=== PATIENT | male | born 1960 | race Caucasian/White ===

== ENCOUNTER 2020-08-31 08:47 | Emergency (ER) | payer SELFPAY ==
[~2020-08-31 08:47] MED LIST: Sodium Chloride 0.9% 1,000 ML BAG ONE
[2020-08-31] MEDS ORDERED: Lidocaine 1% 20 ML MDV ONE (09:16)
[2020-08-31] MEDS ORDERED: Clindamycin/D5W 900 mg/50 ml Premix Bag ONE (09:52)
[2020-08-31] MEDS ORDERED: Morphine 4 MG/ML VIAL ONE (09:52)
[2020-08-31] MEDS ORDERED: metroNIDAZOLE 500 MG/100 ML BAG ONE (09:52)
[2020-08-31] MEDS ORDERED: Ondansetron PF 4 MG/2 ML Vial ONE (09:52)
[2020-08-31 10:06] LABS: #Basophils 0.2 thou/uL (0.0-0.2); #Eosinphils 0.2 thou/uL (0.0-0.7); #Lymphocytes 1.1 thou/uL (1.20-3.40); #Monocytes 1.4 thou/uL (0.11-0.59); #Neutrophils 13.6 thou/uL (1.40-6.50); %Eosinophils 1.2 % (0.0-10.0); %Lymphocytes 6.8 % (21.0-51.0); %Monocytes 8.3 % (0.0-10.0); %Neutrophils 82.7 % (42.0-75.0); Hemoglobin 14.8 g/dL (14.0-18.0); Mean Corpuscular HGB CONC 33.2 g/dL (32.0-36.0); Mean Corpuscular Hemoglobin 28.5 pg (27.0-31.0); Mean Corpuscular Volume 85.9 fL (78.0-98.0); Mean Platelet Volume 8.1 fL (7.4-10.4); Platelet Count 201 thou/uL (130-400); RBC Distribution Width 11.5 % (11.5-14.5); Red Blood Cell (RBC) Count 5.19 mill/uL (4.70-6.10); White Blood Cell (WBC) Count 16.5 thou/uL (4.8-10.8)
[2020-08-31 10:19] LABS: ALT (SGPT) 29 U/L (8-55); AST (SGOT) 16 U/L (5-34); Albumin 4.1 g/dL (3.4-4.8); Alkaline Phosphatase 72 U/L (40-110); Anion Gap 15 mmol/L (10-20); BUN (Urea Nitrogen) 20 mg/dL (8.4-25.7); Bilirubin, Total 1.1 mg/dL (0.2-1.2); Calc. Creatinine Clearance 0 mL/min (70-130); Calcium 9.6 mg/dL (7.8-10.44); Carbon Dioxide 22 mmol/L (23-31); Chloride 103 mmol/L (98-107); Globulin 3.6 g/dL (2.4-3.5); Glucose 190 mg/dL (80-115); Potassium 4.4 mmol/L (3.5-5.1); Protein, Total 7.7 g/dL (5.8-8.1); Sodium 136 mmol/L (136-145)
[2020-08-31] MEDS ORDERED: Iopamidol 370 76% 100 ML VIAL ONE (10:46)
[2020-08-31 10:50] LABS: Bilirubin Negative (Negative); Blood, Urine Negative (Negative); Clarity Clear (Clear); Glucose, Urine (Dipstick) Negative (Negative); Ketone, Urine Negative (Negative); Leukocyte Negative (Negative); Nitrite Negative (Negative); Protein, Urine (Dipstick) 30 mg/dL (Neg-Trace); Specific Gravity, Urine 1.025 (1.005-1.030); pH, Urine 5.5 (5.0-9.0)
[2020-08-31 11:05] LABS: Amphetamine Not Detected (NotDetected); Barbiturates Screen Not Detected (NotDetected); Benzodiazepine Screen Not Detected (NotDetected); Cocaine Metabolite Screen Not Detected (NotDetected); Medtox Control Line Valid? VALID (VALID); Methadone Not Detected (NotDetected); Methamphetamine Not Detected (NotDetected); Opiate Screen Not Detected (NotDetected); Oxycodone Screen Not Detected (NotDetected); Phencyclidine (PCP) Not Detected (NotDetected); THC/Cannabinoid Screen Not Detected (NotDetected); Tricyclic Screen Not Detected (NotDetected)
--- NOTE | 2020-08-31 11:05 | CT ---
CT abdomen and pelvis with IV contrast HISTORY: Abdomen and pelvic pain. Gluteal abscess. FINDINGS: The lung bases are clear. Approximately one quarter of the stomach is above the level of th e diaphragm. Very small nonspecific lymph node adjacent to the left side of the herniated gastric fundus. Liver is diffusely hypodense. A 1.7 cm oval cyst is present at the dome of the left liver lobe. Nonpathologic minimal distention of the pancreatic uncinate process duct is noted. Multiple small cys ts arise from the cortex of each kidney. The largest is at the inferior pole of the right kidney, 2.0 cm greatest diameter. 2 calcifications within nondilated calyces at the left kidney are each 0.4 cm greatest diameter. Single tiny calcifications are also present within calyces of each kidney. No hydronephrosis. Small amount of abdominal fat protrudes into the left inguinal canal. No evidence of bowel obstruction or inflammation. Appendix not visualized. Centered to the right of the lower anus and extending inferiorly is a somewhat ill-defined area of ce ntral fluid and peripheral fat stranding that measures up to 6.2 cm x 4.2 cm greatest diameters on the axial images. It slightly displaces the gluteal fold and anus leftward. No extension into the pel randolph cavity. IMPRESSION : Large right intergluteal abscess, abutting the anus but not extending into the pelvic cavity. Small nonobstructing bilateral renal calculi. Hepato-steatosis. Small left inguinal hernia containing only fat. Small hiatal hernia. No evidence of complication.
[2020-08-31 11:07] LABS: Bacteria/HPF Rare-Few HPF (None Seen); RBC/HPF 0-3 HPF (0-3); Squamous Epithelial 0-3 HPF (0-3); WBC/HPF 0-3 HPF (0-3)
[2020-08-31] MEDS ORDERED: Ketorolac Tromethamine 30 MG/ML VIAL ONE (11:07)
== END 2020-08-31 14:05 | disposition short-term general hospital (02) ==
LOC: MADERS 08:47
DX: L02.31 Cutaneous abscess of buttock (principal); D72.829 Elevated white blood cell count, unspecified; I10 Essential (primary) hypertension; Z79.899 Other long term (current) drug therapy
CPT/HCPCS: 74177; 80053; 80306; 81003; 81015; 83605; 85025; 87040; 96365; 96367; 96375; J1885; J2270; J2405; J3490; J7050; Q9967

== ENCOUNTER 2021-09-03 12:27 | Outpatient (CLI) | payer SELFPAY ==
[2021-09-03 19:58] LABS: SARS-CoV-2 IgG Spike Ab Interp Reactive (NonReactive); SARS-CoV-2 IgG Spike Conc/Indx 435.6 AU/mL (0.00-50.0)
== END 2021-09-03 12:28 | disposition home or self-care (01) ==
LOC: MADLAB 12:27
DX: Z01.84 Encounter for antibody response examination (principal); Z20.822 Contact with and (suspected) exposure to COVID-19
CPT/HCPCS: 36415; 86769